=== PATIENT | male | born 1990 | race Hispanic/Latino ===

== ENCOUNTER 2017-07-19 10:16 | Emergency (ER) | payer SELFPAY ==
[2017-07-19] MEDS ORDERED: Ketorolac Tromethamine 30 MG/ML VIAL ONE (11:16)
[2017-07-19] MEDS ORDERED: Cyclobenzaprine 10 MG TAB ONE (11:16)
== END 2017-07-19 12:14 | disposition home or self-care (01) ==
LOC: ERS 10:16
DX: Z04.1 Encounter for examination and observation following transport accident (principal); V43.62XA Car passenger injured in collision with other type car in traffic accident, initial encounter
CPT/HCPCS: 96372; J1885